=== PATIENT | male | born 1980 | race Caucasian/White ===

== ENCOUNTER 2017-06-03 15:50 | Outpatient (CLI) | payer OTHER ==
--- NOTE | 2017-06-03 18:39 | MRI ---
LEFT KNEE MRI WITHOUT CONTRAST: History: M25.562, N23.92. History of knee surgery. Comparison: 2007 FINDINGS: Medial meniscus: Intact. Lateral meniscus: Intact. Extensor mechanism: Quadriceps tendon, patella and patella tendon are intact. Cartilage: There appears to be possibly a graft harvest site with osteochondral bowing of the medial and lateral trochlea with full thickness cartilage loss. The medial and lateral patellar facets are i ntact. Medical compartment: There is a full thickness cartilage defect of the medial femoral condyle extendi ng to the articular surface. There is abnormal subchondral edema and articular surface remottling. Th ere appear to be an osteochondral graft which was not displaced. This cartilage defect measures 2 mm transverse x 6 mm AP dimension and is on the medial margin of the graft. Lateral compartment: Intact. ACL, PCL, MCL, and LCL: Intact. IMPRESSION: 1. Full thickness 2 x 6 mm cartilage defect along the medial margin of the osteochondral graft in the medial femoral condyle. There is some subchondral cyst formation deep to this full thickness cartila ge defect. The osteochondral graft is intact. 2. Osteochondral graft harvest site in the medial and lateral trochlea with linear fissures which are partially filled in with fibrocartilage. 3. Intact menisci and caudal ligaments as well as cruciate ligaments. POS: [facility]
== END 2017-06-03 15:51 | disposition home or self-care (01) ==
LOC: SCSMRI 15:50
PROVIDERS: ATTEND Orthopaedic Surgery
DX: M25.562 Pain in left knee (principal); M23.92 Unspecified internal derangement of left knee; M85.80 Other specified disorders of bone density and structure, unspecified site

== ENCOUNTER 2020-03-25 14:09 | Outpatient (CLI) | payer OTHER ==
--- NOTE | 2020-03-25 14:30 | RAD ---
EXAM: XR Lumbar Spine 2 Or 3 View PROVIDED CLINICAL HISTORY: Low back pain. COMPARISON: None FINDINGS: Lateral neutral, extension, and flexion views lumbar spine are obtained. Vertebral body heights and i ntervertebral disc spaces are within normal limits. No fracture or subluxation is seen involving lumbar spine. IMPRESSION: No acute findings, and there is no evidence of subluxation.
== END 2020-03-25 14:10 | disposition home or self-care (01) ==
LOC: SCSRAD 14:09
PROVIDERS: ATTEND Neurological Surgery
DX: M54.12 Radiculopathy, cervical region (principal); M54.5 Low back pain
CPT/HCPCS: 72100

== ENCOUNTER 2020-04-19 14:44 | Outpatient (CLI) | payer OTHER ==
--- NOTE | 2020-04-19 16:08 | MRI ---
MRI Cervical Spine WO Con History: Neck pain Comparison: MR cervical spine 2014 Findings: Cerebral tonsils terminate at the foramen magnum. No marrow infiltrative process. Cord signal is normal. Paraspinal musculature is symmetric. Levels are as follows: C2/C3: Normal disc. No neural foraminal or spinal canal narrowing. C3/C4: Normal disc. Minimal uncinate process hypertrophy. No neural foraminal or spinal canal narrowi ng. C4/C5: Normal disc. Minimal uncinate process hypertrophy. No neural foraminal or spinal canal narrowi ng. C5/6: Mild disc desiccation and height loss with large left lateral recess and subforaminal disc oste ophyte complex. Moderate to severe left neural foraminal narrowing. No significant right-sided neural foraminal narrowing. Minimal ventral CSF space effacement. C6/C7: Moderate to severe desiccation and height loss. Large right lateral recess disc extrusion supe rimposed upon a posterior disc bulge. The disc extrusion measures 11 mm in transverse dimension with a craniocaudal dimension of 7 mm and in AP dimension of 6 mm. This causes [id number] ri ght neural foraminal narrowing with exiting nerve root abutment. The associated disc bulge causes moderate ventral CSF space narrowing with the spinal canal measuring approximately 1 cm. C7/T1: Normal disc. No neural foraminal or spinal canal narrowing. Left T1/T2 and T2/T3 perineural cysts. Impression: 1. Relatively large right lateral recess disc extrusion at C6/C7 superimposed upon a disc bulge with exiting nerve root abutment and associated subligamentous edema. 2. Moderate spondylosis at C5/C6 with asymmetric disc osteophyte complex greatest in left paracentral zone and lateral recess causing high-grade neural foraminal narrowing.
--- NOTE | 2020-04-19 16:43 | RAD ---
Exam: Abdomen: 4 views cervical spine HISTORY: Neck pain down both arms. Symptoms are worse on the left COMPARISON: none FINDINGS: Predental space is normal. There is no prevertebral soft tissue swelling. In the neutral po sition, there is preservation of vertebral body height and disc space height. Spondylolisthesis: C5-C6: Neutral: 1.6 mm of retrolisthesis Flexion: Retrolisthesis resolves Extension: 1 mm of retrolisthesis IMPRESSION: Grade 1 retrolisthesis of C5 upon C6 as above.
== END 2020-04-19 14:45 | disposition home or self-care (01) ==
LOC: SCSMRI 14:44
PROVIDERS: ATTEND Neurological Surgery
DX: M50.10 Cervical disc disorder with radiculopathy, unspecified cervical region (principal); M43.12 Spondylolisthesis, cervical region; M47.22 Other spondylosis with radiculopathy, cervical region; M48.02 Spinal stenosis, cervical region; M50.123 Cervical disc disorder at C6-C7 level with radiculopathy; M25.78 Osteophyte, vertebrae
CPT/HCPCS: 72040; 72141

== ENCOUNTER 2020-06-26 08:36 | Outpatient (CLI) | payer OTHER ==
[2020-06-26 17:17] LABS: #Eosinphils 0.1 10x3/uL (0.0-0.5); #Monocytes 0.4 10x3/uL (0.0-1.1); %Basophils 0.5 % (0.0-2.0); %Eosinophils 0.9 % (0.0-6.0); %Lymphocytes 30.7 % (18.0-47.0); %Monocytes 5.8 % (0.0-10.0); %Neutrophils 61.8 % (40.0-75.0); Hemoglobin 14.8 g/dL (14.0-18.0); Mean Corpuscular HGB CONC 33.7 G/DL (32.0-36.0); Mean Corpuscular Hemoglobin 28.4 PG (27.0-33.0); Mean Corpuscular Volume 84.3 fl (80.0-100.0); Mean Platelet Volume 11.6 fl (7.4-10.4); Platelet Count 195 10x3/uL (130-400); RBC Distribution Width 12.9 % (11.5-14.5); Red Blood Cell (RBC) Count 5.21 10x6/uL (4.40-5.80); White Blood Cell (WBC) Count 6.5 10x3/uL (4.5-11.0)
[2020-06-27 02:43] LABS: SARS-CoV-2 MS2 Positive; SARS-CoV-2 N Gene Negative; SARS-CoV-2 S Gene Negative; SARS-CoV-2 by NAA Not Detected (NotDetected); SARS-CoV-2 orf1ab Negative
== END 2020-06-26 08:37 | disposition home or self-care (01) ==
LOC: LABBT 08:36
PROVIDERS: ATTEND Neurological Surgery
DX: Z01.812 Encounter for preprocedural laboratory examination (principal); Z20.828 Contact with and (suspected) exposure to other viral communicable diseases; M50.222 Other cervical disc displacement at C5-C6 level
CPT/HCPCS: 85025; 87635; U0003

== ENCOUNTER 2020-07-01 05:42 | Day surgery (SDC) | payer OTHER ==
[2020-06-25 14:10] VITALS: BMI 27.9
--- NOTE | 2020-06-27 12:57 | HP ---
REASON FOR HISTORY AND PHYSICAL: Surgery on 07/01/2020. Case number is [id number]. HISTORY OF PRESENT ILLNESS: Mr. Calle is a 40-year-old male with a chief complaint of neck pain and right arm pain since August. His pain radiates from his neck to his right scapula into his upper arm, forearm, and stops at midforearm. He does have some paresthesias in his arm, but no weakness. Physical therapy, spinal injections, and medications are not giving him any lasting relief. He denies any bowel or bladder dysfunction. REVIEW OF SYSTEMS: CONSTITUTIONAL: Denies fever or chills. EARS, NOSE, AND THROAT: Denies change of vision or hearing. CARDIAC: Denies chest pain, shortness of breath, or diaphoresis. PULMONARY: Denies shortness of breath, cough, or hemoptysis. GASTROINTESTINAL: Denies abdominal pain, nausea, vomiting, diarrhea, or change in stool formation and consistency. GENITOURINARY: Denies trouble with urination, frequency of urination, or bloody urine. SKIN: Denies skin rash, bruising, bleeding, or skin masses. MUSCULOSKELETAL: As per history of present illness. NEUROLOGIC: As per history of present illness. PSYCHOLOGIC: As per history of present illness. PAST MEDICAL HISTORY: Migraines. PAST SURGICAL HISTORY: Knee. HOSPITALIZATIONS: As above surgery. SOCIAL HISTORY: Nonsmoker. Denies alcohol and illicit drugs. FAMILY HISTORY: Father, alive. Mother, alive. Mother diagnosed with breast cancer. MEDICATIONS: Celebrex 100 mg. ALLERGIES: NO KNOWN DRUG ALLERGIES. PHYSICAL EXAMINATION: VITAL SIGNS: Height 5 feet 10 inches, weight 185 pounds. HEENT: Pupils are equal. Extraocular movements are intact. NECK: Soft, supple. No masses are noted. Range of motion is intact, slightly painful. NEUROLOGIC: Awake, alert, and oriented x3. Memory, attention, and fund of knowledge normal. Cranial nerves are grossly intact. Gait and station normal. Motor exam; normal strength in the deltoids, biceps, triceps, wrist extensors, finger extensors, and interossei. Sensory exam; there is no dermatomal sensory loss in C5, C6, C7, C8 or T1. Reflex exam, mild increase in triceps on the right. IMAGING: MRI of the C-spine, C5-C6 herniated cervical disk causing severe left foraminal narrowing. C6-C7 herniated cervical disk causing severe right foraminal narrowing. X-ray of the C-spine, flexion and extension stable. ASSESSMENT: 1. Cervical disk disorder at C5-C6 level with radiculopathy. 2. Cervical disk disorder at C6-C7 level with radiculopathy. PLAN: 1. ACD and anaeroplasty C5-C6 and C6-C7 vs ACDF C5-C6 and C6-C7. 2. Preop labs; CBC, PT, PTT, COVID-19 testing. 3. Anesthesia clearance. INFORMED CONSENT: We discussed the indications, risks, benefits, alternatives, and expected results from surgery. The risks discussed included, but were not limited to, bleeding, infection, CSF leak, nerve damage, weakness, swallowing trouble, feeding tube placement, tracheal injury, esophageal injury, vocal cord injury, spinal cord injury, incontinence, paralysis, ventilator dependency, wheelchair dependency, stroke, loss of vision, carotid artery injury, jugular vein injury, hardware misplacement, cardiopulmonary complications of anesthesia or . Long-term complications discussed included, but were not limited to hardware failure and degeneration of surrounding disk. He understands the risks and is willing to proceed with surgery. Job ID: [id number] [facility]
[2020-07-01] MEDS ORDERED: Thrombin 5000 UNITS/5 ML VIAL ONE (06:11)
[2020-07-01] MEDS ORDERED: Fentanyl 250 MCG/5 ML VIAL ONE (06:38)
[2020-07-01] MEDS ORDERED: Midazolam HCl 2 mg/2 ml Vial ONE (06:40)
[2020-07-01 06:46] LABS: Prothrombin Time 13.2 sec (12.0-14.7)
[2020-07-01 06:47] LABS: PTT 33.7 sec (22.9-36.1)
[2020-07-01] MEDS ORDERED: Ondansetron PF 4 MG/2 ML Vial ONE (10:13)
[2020-07-01] MEDS ORDERED: PROPOFOL 200 MG/20 ML VIAL ONE (10:13)
[2020-07-01] MEDS ORDERED: Lidocaine 1% PF 5 ML VIAL ONE (10:13)
[2020-07-01] MEDS ORDERED: Dexamethasone 20 MG/5 ML VIAL ONE (10:13)
[2020-07-01] MEDS ORDERED: Rocuronium Bromide 10 MG/ML (10ML VIAL) ONE (10:13)
[2020-07-01] MEDS ORDERED: Glycopyrrolate 0.2 MG/ML 5 ML SYRINGE ONE (10:13)
[2020-07-01] MEDS ORDERED: Vecuronium 10 MG VIAL ONE (10:13)
--- NOTE | 2020-07-01 10:47 | OP ---
DATE OF PROCEDURE: 07/01/2020 CONCAVER: Alex Daniel PA-C PREOPERATIVE INDICATION: Treat pain and prevent neurological deterioration. PREOPERATIVE DIAGNOSIS: C6 and C7 radiculopathies from intervertebral disk protrusions at C5-C6 and C6-C7. POSTOPERATIVE DIAGNOSIS: C6 and C7 radiculopathies from intervertebral disk protrusions at C5-C6 and C6-C7. PROCEDURES PERFORMED: 1. Anterior cervical diskectomy, C5-C6 and C6-C7. 2. Placement of intervertebral disk arthroplasty device at C5-C6 and C6-C7. 3. Operating microscope. PREOPERATIVE MEDICATIONS: Ancef 2 g IV. DRAIN NUMBER: Zero. DRAIN TYPE: None. DESCRIPTION OF PROCEDURE: The patient was brought to the operating room. General endotracheal anesthesia was induced. The patient was carefully positioned on the operating table with his head supported by a donut-shaped headrest. A lateral fluoro radiograph was used to plan our incision. The right side of the neck was sterilely prepped and draped. We opened with a 10 blade knife and controlled bleeding with bipolar and monopolar cautery. We dissected sharply to the platysma. We cut this muscle in line with our incision. We continued our dissection medial to the sternocleidomastoid and lateral to the trachea and esophagus. We arrived to the prevertebral space. We placed a marker at C5-C6 and took a lateral fluoro radiograph to confirm the levels upon which we were operating. We then elevated the longus colli muscles off the anterior surface of C5, C6, and C7, and placed a self-retaining retractor beneath them. Distraction pins were placed at the center of C5, C6, and C7 with the radiographic guidance. We started our diskectomy at C6-C7. We placed the Adams distractor onto the distraction pins at C6 and C7, and distracted across the interspace. We incised the interspace with a 15 blade knife and removed disk contents using curettes and rongeurs. The operative microscope was brought into the field. Under microscopic magnification using microsurgical techniques, we removed the remainder of the intervertebral disk. We accessed the ventral epidural space with a micro curette and we removed posterior osteophytes, posterior longitudinal ligament, and intervertebral disk herniation across the entire interspace from one nerve root to the other. The disk herniation was sequestered under the posterior longitudinal ligament on the right side and this was removed. We got a good decompression of the dura throughout. We flattened the inferior endplate by removing part of the uncovertebral joint. We prepared the endplates for graft placement by removing the cartilaginous cap with a curette. We then turned our attention to C5-C6. We moved our Adams distractor to the C5 and C6 distraction pins and distracted across that interspace. We incised the interspace and removed disk contents. In a similar fashion to what we had done below, we used microsurgical techniques to remove the remainder of the intervertebral disk. The posterior osteophytes and the posterior longitudinal ligament across the entire interspace at C5-C6 from one neural foramen to the other. Here, the disk protrusion was slightly more prominent on the left side, but present on both sides. The protruding disk was removed and the dura was decompressed throughout. We prepared the endplates by removing the cartilaginous cap with curettes. We then began our trial of arthroplasty sizing. We removed our distraction back to C6-C7. We distracted slightly across the interspace and found that a 15 mm x 17 mm x 5 mm implant fit the C6-C7 interspace. The implant was open. It was advanced into the interspace under radiographic guidance. We needed to advance one more millimeter and did so, and then removed the application device. We compressed the endplates down onto the arthroplasty device with our Adams pins and then we moved the Adams distractor to C5-C6. In a similar fashion to what he had done below, we sized our interspace to accept a 17 x 15 x 5 mm graft. This arthroplasty device was opened on the back table, advanced into the interspace under radiographic guidance, advanced one more millimeter and then we compressed then endplates down onto the device. We removed all the distraction pins and took AP and lateral fluoro radiographs to confirm adequate positioning of our disk replacement devices. We irrigated copiously with bacitracin irrigation. We closed in anatomical layers and we applied a sterile dressing. This was a clean case, no contamination. Job ID: [id number]
[2020-07-01] MEDS ORDERED: Fentanyl 100 MCG/2 ML VIAL ONE (11:13)
[2020-07-01] MEDS ORDERED: Tamsulosin HCl 0.4 MG CAP ONE (11:14)
[2020-07-01] MEDS ORDERED: HYDROcodone/Acetaminophen 5/325 mg Tablet ONE (11:55)
== END 2020-07-01 14:20 | disposition home or self-care (01) ==
LOC: SDC 05:42
PROVIDERS: ATTEND Neurological Surgery
PROC: 0RR30JZ Replacement of Cervical Vertebral Disc with Synthetic Substitute, Open Approach (ICD-10-PCS; principal; 2020-07-01)
DX: M50.122 Cervical disc disorder at C5-C6 level with radiculopathy (principal); M48.02 Spinal stenosis, cervical region; G43.909 Migraine, unspecified, not intractable, without status migrainosus; Z79.1 Long term (current) use of non-steroidal anti-inflammatories (NSAID)
CPT/HCPCS: 36415; 76000; 85610; 85730; C1713; C1776; J0690; J1100; J2250; J2405; J2704; J3010; J3490